=== PATIENT | male | born 1950 | race Caucasian/White ===

== ENCOUNTER → 2020-01-25 | Outpatient (CLI) | payer MEDICARE | END | disposition home or self-care (01) | LOC: LABWHC1 15:55 | PROVIDERS: ATTEND Family Medicine | DX: R06.02 Shortness of breath (principal) | CPT/HCPCS: U0003; C9803 ==

== ENCOUNTER 2020-02-28 08:58 | Day surgery (SDC) | payer MEDICARE ==
[2020-02-25 09:13] VITALS: BMI 31.7
--- NOTE | 2020-02-27 15:40 | HP ---
HISTORY AND PHYSICAL CHIEF COMPLAINT: Chronic bilateral serous otitis media. HISTORY OF PRESENT ILLNESS: This patient is a 69-year-old male who was recently seen in my office complaining of having a plugged sensation in both ears and especially left ear. At the time he was seen in the office clinical examination revealed he had chronic bilateral serous otitis media, so-called glue ear. The patient was tried on 2 courses of oral steroids and antibiotics. On his last visit to the office, it was noted that the fluid was still present in both middle ear spaces. It was therefore recommended that he undergo a bilateral myringotomy with insertion of a Yuan type T tubes under IV sedation with MAC. PAST MEDICAL HISTORY: Reveals he has no allergies. MEDICATIONS: His current medications include Prilosec, and Atorvastatin, Diclofenac, Pioglitazone, metformin, Xanax, travoprost ophthalmic and a baby aspirin. REVIEW OF SYSTEMS: Reveals cardiovascular system is positive hypertension. Gastrointestinal system is positive for GERD, gastroesophageal reflux disorder. The metabolic endocrine system is positive for type 2 diabetes mellitus and hypercholesterolemia. The remainder of review of systems unremarkable. OBJECTIVE: HEENT: The patient is normocephalic. Tympanic membranes are dull bilaterally with fluid in both middle ear spaces. Pupils are equal, round, react to light and accommodation. Extraocular movements are within normal limits. Intranasal examination reveals moderate to severe septal deviation with compensatory hypertrophy of the inferior turbinates. Mild amount of mucus on the mucous membranes draining down posterior pharynx. Cranial nerves 2-12 and the remainder of the head and neck exam is unremarkable. Chest/cardiovascular: Both lung bowser are clear to percussion and auscultation. Patient is in regular sinus rhythm. S1, S2 are present. No murmurs, S3s or S4s. Peripheral pulses are bilaterally symmetrical. Abdomen: There is no evidence any masses, megaly or tenderness. Abdomen soft. Skin is unremarkable. Musculoskeletal and neurological and within normal limits. Rectal exam: This is deferred at this time because the patient has this done on a regular basis at his family physician's office. The remainder of physical exam is essentially unremarkable. IMPRESSION: Chronic bilateral serous otitis media. PREVIOUS SURGERIES: Previous surgeries include bilateral myringotomy with insertion of ventilation tubes x1, adenoidectomy, repair of torn Achilles tendon, colonoscopy, repair of traumatic amputation of the tip of the left index finger. PLAN: The patient is scheduled to undergo a bilateral myringotomy with insertion of ventilation tubes on IV sedation with MAC in the a.m. Attention RNs in the pre- surgical area, I have not ordered any pre-surgical prophylactic antibiotics for this patient. If the pharmacy department sends any pre-surgical prophylactic antibiotics to the pre-surgical area for this patient, please cancel that order and return the medication to the pharmacy department. Also make sure that the patient's account is credited appropriately. I have discussed the risks, benefits and alternative therapies for the above-mentioned procedure and for both sedation/analgesia as well as necessary blood product administration, if indicated, as they pertain to this patient. MMODL / IJN: [id number] /
[~2020-02-28 08:58] MED LIST: DEXAMETHASONE SOD PHOSPHATE 4 MG/ML 1 ML VIAL IV ONE; HYDROmorphone 0.5 MG/0.5 ML SYRINGE IVP PRN; LACTATED RINGERS 1,000 ML IV SCH; LIDOCAINE 1% (10MG/ML) FOR IV START INTRADERMA PRN; ONDANSETRON 4 MG/2 ML VIAL IVP ONE; Pre Op ABX Message 1 EACH MISC MISCELLANE ONE
[2020-02-28 09:27] LABS: Glucose,Whole Blood 152 mg/dL (75-99)
[2020-02-28] MEDS ORDERED: LACTATED RINGERS 1,000 ML IV ONE (09:28)
[2020-02-28] MEDS ORDERED: PROPOFOL 10 MG/ML 20 ML VIAL IV ONE (10:21)
[2020-02-28] MEDS ORDERED: MIDAZOLAM 2 MG/2 ML VIAL ONE (10:21)
[2020-02-28] MEDS ORDERED: LIDOCAINE 1% INJ 10MG/ML (20 ML MDV) ONE (10:21)
[2020-02-28] MEDS ORDERED: fentaNYL (PF) 50 MCG/ML 2 ML AMP ONE (10:21)
[2020-02-28] MEDS ORDERED: KETAMINE 10 MG/ML 20 ML VIAL ONE (10:21)
[2020-02-28] MEDS ORDERED: OFLOXACIN 0.3% OTIC DROPS 5 ML BTL BOTH EARS ONE (10:49)
[2020-02-28 11:13] VITALS: TEMP 97.1
[2020-02-28 11:24] LABS: Glucose,Whole Blood 169 mg/dL (75-99)
[2020-02-28 11:41] VITALS: RESP 18
[2020-02-28 11:53] VITALS: BP 146/67; PULSE 60
--- NOTE | 2020-02-28 18:25 | OP ---
OPERATIVE REPORT DATE OF SURGERY: 02/28/2020. PREOPERATIVE DIAGNOSIS: Chronic bilateral serous otitis media. POSTOPERATIVE DIAGNOSIS: Chronic bilateral serous otitis media. ANESTHESIA: Was IV sedation with MAC. PROCEDURE PERFORMED: Bilateral myringotomy, insertion of Yuan type T-tubes. OPERATING SURGEON: Dr. Alba. COMPLICATIONS: None. ESTIMATED BLOOD LOSS: Zero. OPERATIVE PROCEDURE: The patient was placed on the operating table in the supine position after uneventful induction and mask anesthesia. Satisfactory general anesthesia was obtained. Next, the operating microscope was brought into position over the patient's right ear where after insertion of a #3 aural speculum, the external auditory canal was cleansed of all wax and debris and a myringotomy knife was used to make an incision in the anterior inferior quadrant of the right tympanic membrane. Next, the middle ear space was suctioned free of all fluid and a T-type ventilation tube was inserted through the previously made myringotomy incision without any difficulty. Attention was then directed to the left ear where the same procedure was carried out using the operating microscope and #3 aural speculum. The external auditory canal was cleansed of all wax and debris and the myringotomy knife was used to make an incision in the anterior inferior quadrant of the left tympanic membrane. Once again, the middle ear space was suctioned free of all fluid and a T-type ventilation tube was inserted through the previously made myringotomy incision without any difficulty. At this point, the procedure was terminated. There were no intraoperative complications. The patient tolerated the procedure well and was returned to the Recovery Room in satisfactory condition. MMODL / IJN: [id number] /
== END 2020-02-28 12:22 | disposition home or self-care (01) ==
LOC: OR 08:58
PROVIDERS: ATTEND Otolaryngology
DX: H65.23 Chronic serous otitis media, bilateral (principal); I10 Essential (primary) hypertension; K21.9 Gastro-esophageal reflux disease without esophagitis; E11.9 Type 2 diabetes mellitus without complications; E78.00 Pure hypercholesterolemia, unspecified; E78.5 Hyperlipidemia, unspecified; Z79.84 Long term (current) use of oral hypoglycemic drugs; Z79.899 Other long term (current) drug therapy; Z79.82 Long term (current) use of aspirin
CPT/HCPCS: 69436; J2250; J1100; J2405; J2001; J3010; J2704

== ENCOUNTER 2023-08-15 08:29 | Day surgery (SDC) | payer MEDICARE ==
[2023-08-13 11:36] VITALS: BMI 30.1
--- NOTE | 2023-08-14 19:00 | HP ---
HISTORY AND PHYSICAL CHIEF COMPLAINT: Severe nasal stuffiness. HISTORY OF PRESENT ILLNESS: This patient is a 73-year-old male, who was recently seen in my office complaining of having difficulty breathing through the right side of his nose. The patient has history of sleep apnea, however, he is not able to tolerate his CPAP machine very well. He denies any recent nasal injuries, but states that he has the most difficulty breathing through his nose at night. At the time that he was seen in my office, clinical examination intranasally revealed severe nasal septal deviation to the left with bilateral compensatory hypertrophy of inferior turbinates, hypertrophy of the maxillary crest, deformity of the perpendicular plate of the ethmoid bone. It was recommended that the patient undergo a Brooke septoplasty with bilateral partial resection of the inferior turbinates under general anesthesia. PAST MEDICAL HISTORY: Reveals he has no allergies to medications. CURRENT MEDICATIONS: 1. . 2. Metformin. 3. Prilosec. 4. Actos. 5. Benicar. 6. Lipitor. 7. Glucosamine. 8. Jardiance. 9. Latanoprost. 10.Timolol. 11.Olmesartan. 12.Hydrochlorothiazide. REVIEW OF SYSTEMS: CARDIOVASCULAR: Positive for hypertension and ASHD. GASTROINTESTINAL: Positive for GERD (gastroesophageal reflux disorder). MUSCULOSKELETAL: Positive for osteoarthritis. METABOLIC/ENDOCRINE: Positive for type 2 diabetes mellitus and hypercholesterolemia (the patient is on Lipitor). positive for glaucoma. Remainder of the review of systems is essentially unremarkable. PHYSICAL EXAMINATION: HEENT: The patient is normocephalic. Tympanic membranes are normal. Middle ear space is free of any fluid or infection. Pupils equal, round, and reactive to light and accommodation. Extraocular movements within normal limits. Intranasal examination reveals severe septal deviation to the left with compensatory hypertrophy of inferior turbinates bilaterally. There is hypertrophy of the maxillary crest and deformity of the perpendicular plate of the ethmoid bone. Examination of oropharynx, cranial nerves 2 through 12, remainder of the head and neck exam is unremarkable. CHEST/CARDIOVASCULAR: Both lung bowser are clear to percussion and auscultation. The patient is in regular sinus rhythm. S1 and S2 are present without any murmurs, S3s or S4s. Peripheral pulses are bilaterally symmetrical and within normal limits. ABDOMEN: There is no evidence of any masses, megaly, or tenderness. The abdomen is soft. SKIN: Unremarkable. MUSCULOSKELETAL: All within normal limits. NEUROLOGICAL: All within normal limits. RECTAL: Deferred at this time because the patient has this done on a regular basis at his family physician's office. Remainder of the physical exam is unremarkable. IMPRESSION: Severe nasal septal deviation with severe bilateral hypertrophy of the inferior turbinates. PLAN: The patient is scheduled to undergo a Brooke septoplasty with bilateral partial resection of the inferior turbinates under general anesthesia in a.m. Attention, RNs in the pre-surgical area. I have ordered for this patient to receive 2 g of Ancef IV to be given once an IV line has been established. If the Pharmacy Department sends a different pre-surgical prophylactic antibiotic to the pre-surgical area for this patient, please cancel that order and return that medication to the Pharmacy Department. Also make sure that the patient's account is credited appropriately. In addition, I have ordered for this patient to receive 1000 mg of Ofirmev IV to be given once an IV line has been established. This patient will be an overnight stay in the hospital. Please make sure that the patient is sent to the floor with a face tent and not a face mask. Also, once the patient is on the floor, he will be placed on a POSTAL MAIL CARRIER pump. In addition, the patient is being sent to the floor with a baggy containing 5/6 oval eye patches and a roll of tape to use for nasal dressings. I have discussed the risks, benefits and alternative therapies for the above-mentioned procedure and for both sedation/analgesia as well as necessary blood product administration, if indicated, as they pertain to this patient. The patient has indicated his understanding and acceptance of the risks and procedures discussed. MMODL / IJN: [id number] /
[~2023-08-15 08:29] MED LIST changes: -DEXAMETHASONE SOD PHOSPHATE 4 MG/ML 1 ML VIAL IV ONE; -LACTATED RINGERS 1,000 ML IV SCH; +MIDAZOLAM 2 MG/2 ML VIAL IV PRN; +NALOXONE 0.4 MG/ML 1 ML VIAL IV PRN; -ONDANSETRON 4 MG/2 ML VIAL IVP ONE
[2023-08-15] MEDS: LACTATED RINGERS 1,000 ML IV SCH ×2 (09:33→15:53)
[2023-08-15 09:35] LABS: Glucose,Whole Blood 128 mg/dL (70-110)
[2023-08-15] MEDS: DEXAMETHASONE SOD PHOSPHATE 4 MG/ML 1 ML VIAL IVP ONE (09:37)
[2023-08-15] MEDS: ONDANSETRON 4 MG/2 ML VIAL IVP ONE ×2 (09:37→15:40)
[2023-08-15] MEDS: ACETAMINOPHEN IV (For NPO) 1,000 MG in EMPTY BAG 1 BAG IVPB ONE (09:38)
[2023-08-15] MEDS ORDERED: fentaNYL (PF) 50 MCG/ML 2 ML AMP ONE (09:56)
[2023-08-15] MEDS ORDERED: GLYCOPYRROLATE 0.2 MG/ML 2 ML VIAL ONE (09:56)
[2023-08-15] MEDS ORDERED: LIDOCAINE 1% INJ 10MG/ML (20 ML MDV) ONE (09:56)
[2023-08-15] MEDS ORDERED: PHENYLEPHRINE-0.9% NACL SYG 1,000 MCG/10 ML SYRINGE ONE (09:56)
[2023-08-15] MEDS ORDERED: NEOSTIGMINE 1 MG/ML 10 ML VIAL ONE (09:56)
[2023-08-15] MEDS ORDERED: MIDAZOLAM 2 MG/2 ML VIAL ONE (09:56)
[2023-08-15] MEDS ORDERED: HYDROmorphone (PF) 1 MG/ML ONE (09:56)
[2023-08-15] MEDS ORDERED: SUGAMMADEX SODIUM 200 MG/2 ML SDV IV ONE (09:56)
[2023-08-15] MEDS ORDERED: ePHEDrine 50 MG/ML 1 ML VIAL ONE (09:56)
[2023-08-15] MEDS ORDERED: WATER FOR INJECTION, STERILE 10 ML VIAL IV ONE (09:56)
[2023-08-15] MEDS ORDERED: SUCCINYLCHOLINE CHLORIDE 200 MG/10 ML VIAL IV ONE (09:56)
[2023-08-15] MEDS ORDERED: PROPOFOL 10 MG/ML 20 ML VIAL IV ONE (09:56)
[2023-08-15] MEDS ORDERED: ROCURONIUM 10 MG/ML (5 ML VIAL) IV ONE (09:56)
[2023-08-15] MEDS ORDERED: LABETALOL 5 MG/ML VIAL MDV ONE (09:56)
[2023-08-15] MEDS ORDERED: DEXAMETHASONE SOD PHOSPHATE 10 MG/ML 1 ML VIAL ONE (09:56)
[2023-08-15] MEDS ORDERED: ONDANSETRON 4 MG/2 ML VIAL ONE (09:56)
[2023-08-15] MEDS: OXYMETAZOLINE 0.05% NASL SPRAY 1 SPRAY BOTTLE EA NOSTRIL ONE (10:29)
[2023-08-15] MEDS: BACITRACIN ZINC 500 UNIT/GM OINT 28.4 GM TUBE TOPICAL ONE (10:32)
[2023-08-15] MEDS: LIDOCAINE 1%-EPI 1:100,000 20 ML VIAL SUBMUCOSAL ONE ×2 (10:32)
[2023-08-15] MEDS: LACTATED RINGERS 1,000 ML IV ONE ×2 (11:16)
[2023-08-15 13:42] LABS: Glucose,Whole Blood 199 mg/dL (70-110)
[2023-08-15] MEDS ORDERED: ALPRAZolam 0.5 MG TAB PO PRN (14:00)
[2023-08-15] MEDS: DEXAMETHASONE SOD PHOSPHATE 4 MG/ML 1 ML VIAL IV ONE (15:32)
[2023-08-15] MEDS: HYDROmorphone PCA 10 MG/50 ML BAG IV PRN (16:13)
[2023-08-15] MEDS: PIOGLITAZONE 45 MG TAB PO SCH (19:43)
[2023-08-15] MEDS: metFORMIN 500 MG TAB PO SCH (19:43)
[2023-08-15] MEDS: ATORVASTATIN 10 MG TAB PO SCH (19:43)
[2023-08-15] MEDS: LOSARTAN 25 MG TAB PO SCH (19:43)
[2023-08-15 20:29] LABS: Glucose,Whole Blood 337 mg/dL (70-110)
[2023-08-15] MEDS ORDERED: TEMAZEPAM 15 MG CAP PO PRN (22:00)
[2023-08-16 06:54] LABS: Glucose,Whole Blood 129 mg/dL (70-110)
[2023-08-16 08:25] VITALS: RESP 16
[2023-08-16] MEDS: hydroCHLOROthiazide 25 MG TAB PO SCH (08:39)
[2023-08-16 10:54] LABS: Glucose,Whole Blood 187 mg/dL (70-110)
[2023-08-16] MEDS: ONDANSETRON 4 MG/2 ML VIAL IVP PRN (12:54)
[2023-08-16 15:07] VITALS: BP 148/68; PULSE 64; TEMP 97.4
--- NOTE | 2023-08-18 23:44 | DS ---
DISCHARGE SUMMARY DATE OF SURGERY: 08/15/2023. SURGICAL PROCEDURE: Brooke septoplasty with bilateral partial resection of the inferior turbinates. HISTORY OF PRESENT ILLNESS: This patient was a 73-year-old male who was admitted for surgical correction of a severe nasal septal deviation and bilateral hypertrophy of the inferior turbinates and other nasal deformities. The patient underwent a Brooke septoplasty with bilateral partial resection of the inferior turbinates on 08/15/2023 and was admitted for an overnight stay in the hospital after surgical procedure, which was uneventful. HOSPITAL COURSE: The patient's hospital course was uneventful. The patient postoperatively was placed on all his home medications. In addition, he was placed on Ancef 2 g IV q.8 hours, a ON LINE CSR pump with Dilaudid, and supplemental O2 via a face tent. His hospital course was completely uneventful. The patient is discharged at this time on 08/16/2023 in satisfactory condition. He is discharged on the following medications: Ceftin 500 mg p.o. b.i.d. #20, and [place] 7.5/325 tablets #18 one p.o. q.4 hours p.r.n. for pain. The patient has been given the appropriate discharge instructions both verbally and these will be printed out from the computer and given to the patient. All of his questions were answered. Prior to his discharge, the nasal packing was removed from the right and left nares of the patient. The patient did have a short period of bleeding after removal of the packing, which is not unexpected. Once a slight bleeding episode had ceased, the patient was discharged to home in satisfactory condition and given the appropriate numbers to call if he had any problems. He was also advised that Dr. Alba's will call him at home to see if there are any problems on 08/17/2023. The patient is scheduled for his postoperative visit at Dr. Alba's office on 08/21/2023 at 10:45 a.m. SKIP / BOLIVAR: [id number] /
--- NOTE | 2023-08-18 23:59 | OP ---
OPERATIVE REPORT DATE OF SERVICE : 08/15/2023 PREOPERATIVE DIAGNOSIS: Severe nasal septal deviation with severe bilateral hypertrophy of the inferior turbinates. POSTOPERATIVE DIAGNOSIS: Severe nasal septal deviation with severe bilateral hypertrophy of the inferior turbinates. ANESTHESIA: General. PROCEDURE PERFORMED: Brooke septoplasty with bilateral partial resection of the inferior turbinates. COMPLICATIONS: None. ESTIMATED BLOOD LOSS: Less than 50 cc. DESCRIPTION OF PROCEDURE: The patient was placed on the operating table in supine position. The patient's date of surgery was 08/15/2023. After uneventful intubation, satisfactory general anesthesia was obtained. The patient's right and left nares were packed with cottonoids, saturated with Afrin nasal spray. These cottonoids were placed along the inferior turbinates and left in place for approximately 10 minutes to achieve maximum vasoconstriction of the inferior turbinates. Upon removal of the cottonoids, the various deformities could be easily seen. There was severe bilateral hypertrophy of inferior turbinates, severe septal deformity to the right, hypertrophy of the maxillary crest, deformity of the perpendicular plate of the ethmoid bone, and a vomerine spur was noted on the left side. Next, the membrane portion of the of the septum was grasped with a columellar clamp and pulled anteriorly. This membrane septum was then infiltrated with approximately 1 to 2 mL of 1% xylocaine with epinephrine 1:100,000 and additional mL of solution was infiltrated along the nasal spine. Next, the so-called hemitransfixation incision was made on the right side of the membranous septum. This was done using a #15 scalpel beginning at the dome of the nose and working down to the floor of the nose with the incision being made just anterior to the caudal end of the cartilage portion of the septum. The incision was made through the mucous membranes only. Next, using a pair of sharp angled Mcdaniels scissors, the soft tissues were dissected away from the caudal end of the cartilage portion of the septum. The perichondrium was then sharply incised. next, so-called superior tunnel was raised on the left side of the cartilage portion of septum using a combination of Fortson, Connie and a Brooke knife and a sweeping motion from superior to inferior and short motions from anterior to posterior. This dissection was carried out posteriorly until the junction was reached between the perpendicular plate of the ethmoid and the cartilage portion of septum. At this point, this junction was crossed and the blunt end of the Fortson was then used to continue with the posterior tunnel in a sweeping fashion from superior to inferior, anterior to posterior back to the level of the rostrum of the ethmoid. Next, the junction of the perpendicular plate of the ethmoid and a cartilage portion of the septum was sharply incised using the McKenty and Brooke knife. Once again, a posterior tunnel was created using a blunt end of the Fortson in a streak motion from superior to inferior, anterior, posterior, continuing until the rostrum of the sphenoid was reached. Next, the dissection was carried down further inferiorly to the floor of the nose using a hockey stick dissect on the right and left side of the maxillary crest. Because the patient has significant deformity of the maxillary crest, right and left inferior tunnels were created in the usual and customary fashion. Next, a 4 mm inferior strut of the cartilaginous septum was removed by incising the cartilage with a Brooke knife. This cartilaginous strip was dissected away from the maxillary crest using a [place] knife in the usual and customary fashion and was discarded. Having done this, this allowed the cartilage portion of the septum to swing freely. Next, the excess bone of the maxillary crest was taken down using a 4 mm chisel and a mallet in the usual fashion. The central portion of the deformed ethmoid bone was removed using a pair of double acting bone biting Kerrison. The vomerine spur was removed by loosening it with a 4 mm chisel and mallet and subsequently grabbing this spur with a Maribel forceps and twisting and subsequently removing it in an atraumatic fashion. Having completed this dissection, this allowed the cartilage portion of septum to swing back to the midline. Next, attention was directed towards resecting the right and left inferior turbinates. Initially, the right turbinate was grasped with a curved Tiffanie clamp as far on the turbinates as possible. This was clamped to crush the turbinates. The clamped curved Tiffanie was left in place for 7 minutes and then was subsequently removed. The crushed portion of the inferior turbinate the portion to be resected. The resection was carried out using a pair of heavy turbinectomy scissors in the usual fashion. Hemostasis was obtained using suction cautery. Attention was then directed to the left inferior turbinate. With the same procedure, procedure was carried out. it was clamped as high as possible on the turbinate using a curved Tiffanie clamp. The clamp was left in place for approximately 7 minutes and then removed. The crushed portion of the left inferior turbinate delineated the portion to be resected. The resection was carried out using a pair of having angled turbinectomy scissors in usual fashion. The hemostasis was then obtained using suction cautery. Next, both the left and right chambers were dusted with a hemostatic powder, Nancy. Next, the hemitransfixation incision was closed using a single 4-0 chromic suture. A pair of 8 cm Xomed Wiley nasal splints were inserted in the right and left nasal chambers respectively and these were sewn to the membrane portion of the septum using 3-0 silk suture on a straight Thanh needle. Next, a pair of 10 cm Merocel nasal tampons were inserted lateral to the nasal splints on the right and the left side respectively. Prior to insertion, both nasal tampons were generously lubricated with bacitracin ointment. A mustache dressing was applied. Prior to insertion of the Wiley splint and Merocel sponges, inspection revealed that the right and left nasal airways were significantly improved. Estimated blood loss was less than 50 mL. At this point, the procedure was terminated. There were no intraoperative complications. The patient tolerated the procedure well and was returned to the recovery room. The patient will be admitted for an overnight stay. There were no pathological specimens. MMODL / IJN: [id number] /
== END 2023-08-16 16:00 | disposition home or self-care (01) ==
LOC: OR 08:29 → 6NMEDSUR 13:24 → OR 08-16 16:00
PROVIDERS: ATTEND Otolaryngology
DX: J34.2 Deviated nasal septum (principal); J34.3 Hypertrophy of nasal turbinates; I10 Essential (primary) hypertension; K21.9 Gastro-esophageal reflux disease without esophagitis; M19.90 Unspecified osteoarthritis, unspecified site; E11.9 Type 2 diabetes mellitus without complications; Z79.899 Other long term (current) drug therapy; Z96.652 Presence of left artificial knee joint; Z98.890 Other specified postprocedural states
CPT/HCPCS: 30520; 30140; J2250; J0330; J1100 ×2; J2710; J0690 ×2; J2405 ×2; J2001; J3010; J1170 ×2; J0131; J2704; J2371; J1920

== ENCOUNTER 2024-04-23 08:29 | Day surgery (SDC) | payer MEDICARE ==
--- NOTE | 2024-04-22 18:24 | HP ---
HISTORY AND PHYSICAL CHIEF COMPLAINT: Perforation of the left tympanic membrane. HISTORY OF PRESENT ILLNESS: This patient is a 73-year-old male who was recently seen in my office complaining of having drainage from both ears. The patient has previously undergone bilateral myringotomy with insertion of ventilation tubes. The patient was placed on 2 courses of oral antibiotics. Eventually, the drainage ceased from the right ear; however, the left ear continued to drain, and the patient was subsequently placed on another course of oral antibiotics and antibiotic ear drops. Upon returning to the office, it was noted that the left ear was now dry, but apparently the left tube had extruded. There was a remaining residual perforation. After allowing approximately 3 weeks for this perforation to close, it was decided that it would not close. The ear was dry, and it was therefore recommended that the patient undergo insertion of a Kartush patch under IV sedation with MAC. ALLERGIES: The patient has no known allergies to medications. CURRENT MEDICATIONS: Include: 1. Metformin. 2. Prilosec. 3. Actos. 4. Benicar. 5. Lipitor. 6. Glucosamine. 7. Jardiance. 8. Latanoprost. 9. Timolol. 10.Olmesartan. REVIEW OF SYSTEMS: CARDIOVASCULAR: Positive for hypertension and ASHD. GASTROINTESTINAL: Positive for GERD (gastroesophageal reflux disorder). MUSCULOSKELETAL: Positive for osteoarthritis. METABOLIC/ENDOCRINE: Positive for type 2 diabetes mellitus and hypercholesterolemia. SPECIAL SENSES: Positive for glaucoma. Remainder of the review of systems is unremarkable. PHYSICAL EXAMINATION: General: This patient is a 73-year-old male who is alert and cooperative. HEENT: The patient is normocephalic. Right tympanic membrane is unremarkable. Examination of left ear reveals a central perforation of the left tympanic membrane. The left middle ear space is dry. Pupils equal, round, reactive to light and accommodation. Extraocular movements within normal limits. Intranasal examination reveals only slight septal deviation. There is also slight hypertrophy of the inferior turbinates bilaterally. There is a slight amount of clear mucus coming from both maxillary sinus ostia and draining down the posterior pharynx. Examination of oropharynx and the remainder of the head and neck exam are within normal limits. CHEST: Both lung bowser are clear to percussion and auscultation. CARDIOVASCULAR: The patient is in regular sinus rhythm. S1, S2 are present without evidence of murmurs, S3s, or S4s. Peripheral pulses are bilaterally symmetrical. ABDOMEN: There is no evidence of any masses, megaly, or tenderness. The abdomen is soft. SKIN: Unremarkable. MUSCULOSKELETAL: Within normal limits. NEUROLOGICAL: Within normal limits. RECTAL: Deferred at this time because the patient has done it on a regular basis at his family physician's office. The remainder of the physical exam is essentially unremarkable. IMPRESSION: Perforation of the left tympanic membrane. PLAN: The patient is scheduled to undergo insertion of a Kartush patch to a perforation of the left ear under IV sedation with MAC depending upon recommendations of the anesthesia department. Attention, RNs in the pre-surgical area: I have ordered for this patient to receive 1.5 g of Unasyn IVPB to be given once an intravenous line has been established. If the pharmacy department sends a different pre-surgical prophylactic antibiotic to the pre- surgical area for this patient, please cancel that order and return the medication to the pharmacy department. Also, make sure that the patient's account is credited appropriately. I have discussed the risks, benefits and alternative therapies for the above-mentioned procedure and for both sedation/analgesia as well as necessary blood product administration, if indicated, as they pertain to this patient. The patient has indicated his understanding and acceptance of the risks and procedures discussed. MMODL / IJN: [id number] /
[~2024-04-23 08:29] MED LIST changes: +LACTATED RINGERS 1,000 ML IV SCH; -LIDOCAINE 1% (10MG/ML) FOR IV START INTRADERMA PRN; -NALOXONE 0.4 MG/ML 1 ML VIAL IV PRN
[2024-04-23 08:53] VITALS: TEMP 97.1
[2024-04-23 09:02] LABS: Glucose,Whole Blood 141 mg/dL (70-110)
[2024-04-23] MEDS: SODIUM CHLORIDE 0.9% 500 ML 500 ML IV ONE (09:02)
[2024-04-23] MEDS: ONDANSETRON 4 MG/2 ML VIAL IVP STA (09:16)
[2024-04-23] MEDS ORDERED: MIDAZOLAM 2 MG/2 ML VIAL ONE (09:50)
[2024-04-23] MEDS ORDERED: fentaNYL (PF) 50 MCG/ML 2 ML AMP ONE (09:50)
[2024-04-23] MEDS ORDERED: PROPOFOL 10 MG/ML 20 ML VIAL IV ONE (09:50)
[2024-04-23] MEDS: AMPICILLIN-SULBACTAM 1.5 GM in SODIUM CHLORIDE 0.9% 50 ML IVPB ONE (09:57)
[2024-04-23] MEDS: OFLOXACIN 0.3% OPHTH DROPS 5 ML BOTTLE LEFT EYE ONE (10:12)
[2024-04-23] MEDS: IV FLUID CONTINUATION 1,000 ML IV ONE (10:39)
[2024-04-23 10:58] LABS: Glucose,Whole Blood 118 mg/dL (70-110)
[2024-04-23 11:21] VITALS: RESP 16
[2024-04-23 11:36] VITALS: BP 129/61; PULSE 52
--- NOTE | 2024-04-29 12:04 | OP ---
OPERATIVE REPORT DATE OF SERVICE : 04/23/2024 PREOPERATIVE DIAGNOSIS: Perforation of the left tympanic membrane. POSTOPERATIVE DIAGNOSIS: Perforation of the left tympanic membrane. ANESTHESIA: IV sedation with MAC. OPERATIVE PROCEDURE: Insertion of a Kartush patch to a perforation of the left tympanic membrane. COMPLICATIONS: None. The Kartush patch used was a 5 mm in size. DESCRIPTION OF PROCEDURE: The patient was placed on the operating table in supine position. After uneventful IV sedation, satisfactory sedation was obtained. Next, the patient's left ear was draped in usual and customary fashion. Next, using the Zeiss operating microscope and a #3 aural speculum, the left external auditory canal was cleansed of all wax and debris. Following this, the perforation was noted and a 5 mm Kartush patch was inserted in the usual and customary fashion using a pair of alligator ear forceps. The patch was subsequently manipulated into proper position so that the entire perforation was closed using a combination of annulus elevator and also a Araya needle. At this point, the procedure was terminated. There were no intraoperative complications. The patient tolerated the procedure well and was returned to the recovery room in satisfactory condition. MMODL / IJN: [id number] /
== END 2024-04-23 11:57 | disposition home or self-care (01) ==
LOC: OR 08:29
PROVIDERS: ATTEND Otolaryngology
DX: H72.92 Unspecified perforation of tympanic membrane, left ear (principal); E78.5 Hyperlipidemia, unspecified; E11.9 Type 2 diabetes mellitus without complications; M19.90 Unspecified osteoarthritis, unspecified site; K21.9 Gastro-esophageal reflux disease without esophagitis; Z79.02 Long term (current) use of antithrombotics/antiplatelets; Z79.84 Long term (current) use of oral hypoglycemic drugs; Z79.82 Long term (current) use of aspirin; Z79.899 Other long term (current) drug therapy; Z90.89 Acquired absence of other organs
CPT/HCPCS: 69610; J2250; J2405; J3010; J0295; J2704